=== PATIENT | female | born 1990 | race Caucasian/White ===

== ENCOUNTER 2017-10-11 12:10 | Emergency (ER) | payer MEDICAID ==
[~2017-10-11] VITALS: Ht 162.6 cm; Wt 79.4 kg
[2017-10-11 12:34] VITALS: BP 121/75
[2017-10-11] MEDS ORDERED: IBUPROFEN 800 MG TAB PO ONE (13:30)
[2017-10-11] MEDS ORDERED: cefTRIAXone SOD 1,000 MG VL IM ONE (13:30)
== END 2017-10-11 14:00 | disposition home or self-care (01) ==
LOC: ER 12:10
DX: N39.0 Urinary tract infection, site not specified (principal)
CPT/HCPCS: 81025; 96372; 99283; J0696

== ENCOUNTER 2018-03-25 12:45 | Emergency (ER) | payer MEDICAID ==
[~2018-03-25] VITALS: Ht 162.6 cm; Wt 80.7 kg
[2018-03-25 13:10] VITALS: BP 120/77
[2018-03-25 14:26] LABS: Urine Bacteria NONE SEEN /hpf (None Seen); Urine Blood Negative /uL (Negative); Urine Mucus FEW (None Seen); Urine WBC 1 /hpf (0 - 5)
[2018-03-25] MEDS ORDERED: KETOROLAC TROMETH 60MG/2ML VIAL IM ONE (17:15)
== END 2018-03-25 18:25 | disposition home or self-care (01) ==
LOC: ER 12:50
DX: N39.0 Urinary tract infection, site not specified (principal); J45.909 Unspecified asthma, uncomplicated; Z98.51 Tubal ligation status
CPT/HCPCS: 72100; 73502; 81001; 81025; 96372; 99284; J1885